=== PATIENT | female | born 1975 | race Caucasian/White ===

== ENCOUNTER → 2017-06-21 | Outpatient (CLI) | payer OTHER | LOC: BMCIMAGING 13:40 | PROVIDERS: ATTEND Family Medicine | DX: Z12.31 Encounter for screening mammogram for malignant neoplasm of breast (principal) | CPT/HCPCS: G0202 ==

== ENCOUNTER → 2018-06-22 | Outpatient (CLI) | payer OTHER | LOC: BMCIMAGING 08:16 | PROVIDERS: ATTEND Family Medicine | DX: Z12.31 Encounter for screening mammogram for malignant neoplasm of breast (principal) ==

== ENCOUNTER → 2018-10-15 | Outpatient (CLI) | payer OTHER | LOC: BMCIMAGING 10:52 | PROVIDERS: ATTEND Family Medicine | DX: R05 Cough (principal) ==